=== PATIENT | male | born 1985 | race African-American/Black ===

== ENCOUNTER 2017-02-24 19:33 | Emergency (ER) | payer SELFPAY ==
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
--- NOTE | 2017-02-24 20:35 | RAD ---
HISTORY: Right first finger swelling COMPARISONS: None VIEWS: 3, Frontal, lateral, and oblique views of the first digit of the right hand FINDINGS: BONE DENSITY: Normal. BONES: There is no displaced fracture. JOINTS: There is no arthropathy. ALIGNMENT: There is no dislocation. SOFT TISSUES: There is soft tissue calcification along the volar aspect of the distal phalanx of the first digit OTHER FINDINGS: None. IMPRESSION: DYSTROPHIC CALCIFICATION ALONG THE SOFT TISSUES OF THE DISTAL PHALANX. NO ACUTE OSSEOUS INJURY. IF SYMPTOMS PERSIST, RECOMMEND REPEAT IMAGING
[2017-02-24 20:42] LABS: Hematocrit 46 % (42-52); Mean Corpuscular HGB Conc 33 g/dl (31-36); Mean Corpuscular Hemoglobin 29 pg (27-31); Mean Corpuscular Volume 87 fL (80-94); Mean Platelet Volume 9 um3 (7.4-10.4); Red Blood Count 5.26 10^6/ul (4.0-5.4); Red Cell Distribution Width 13 % (10.5-15); White Blood Count 8.1 10^3/ul (3.5-10.8)
[2017-02-24 20:58] LABS: Albumin 4.4 g/dL (3.2-5.2); BUN/Creatinine Ratio 13.4 (8-20); EGFR African American 116.1 (>60); EGFR Non-African American 90.3 (>60); Globulin 3.7 g/dL (2-4); Potassium 3.8 mmol/L (3.5-5.0); Total Bilirubin 0.4 mg/dL (0.2-1.0); Total Protein 8.1 g/dL (6.4-8.9)
[2017-02-24] MEDS ORDERED: Amoxicillin/Clavulanate TAB* 875 MG PO ONE (21:07)
[2017-02-24] MEDS ORDERED: metFORMIN* 500 MG TAB PO ONE (21:07)
[2017-02-24 22:17] VITALS: BP 129/74
== END 2017-02-24 22:15 | disposition home or self-care (01) ==
LOC: ED 19:33
DX: E11.9 Type 2 diabetes mellitus without complications (principal); Z72.0 Tobacco use; R60.9 Edema, unspecified
CPT/HCPCS: 36415; 80053; 83605; 85025; 86141; 99282; A9270-GY

== ENCOUNTER 2017-12-25 21:41 | Emergency (ER) | payer SELFPAY ==
[2017-12-26 00:23] VITALS: BP 0/0
--- NOTE | 2017-12-26 07:35 | RAD ---
INDICATION: Wound to left hand. TECHNIQUE: 2 views of the left hand were obtained. FINDINGS: The bones are in normal alignment. No fracture is seen. No radiopaque foreign body is seen. Joint spaces appear maintained. IMPRESSION: NO EVIDENCE FOR FRACTURE OR REPEAT FOREIGN BODY.
== END 2017-12-26 00:24 | disposition left against medical advice (07) ==
LOC: ED 21:41
DX: M79.642 Pain in left hand (principal); Z53.21 Procedure and treatment not carried out due to patient leaving prior to being seen by health care provider

== ENCOUNTER 2018-03-18 18:17 | Emergency (ER) | payer SELFPAY ==
[2018-03-18] MEDS ORDERED: Ondansetron ODT TAB* 4 MG SL ONE (19:02)
[2018-03-18] MEDS ORDERED: ceFAZolin 1 GM in Dextrose (*) 1 GM/50 ML BAG IVPB ONE (19:02)
[2018-03-18] MEDS ORDERED: Morphine VIAL* 10 MG/ML 1 ML VIAL IV ONE (19:02)
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
[2018-03-18] MEDS ORDERED: Tetan/Diph/Pertus SYR(Tdap)* 0.5 ML SYR(BOOSTRIX) use SYR IM ONE (19:23)
[2018-03-18 20:23] VITALS: BP 152/92
== END 2018-03-18 20:23 | disposition short-term general hospital (02) ==
LOC: ED 18:17
DX: T26.62XA Corrosion of cornea and conjunctival sac, left eye, initial encounter (principal); T26.61XA Corrosion of cornea and conjunctival sac, right eye, initial encounter; T20.44XA Corrosion of unspecified degree of nose (septum), initial encounter; T28.5XXA Corrosion of mouth and pharynx, initial encounter; Y93.89 Activity, other specified; Y92.89 Other specified places as the place of occurrence of the external cause; Y99.0 Civilian activity done for income or pay; Z23 Encounter for immunization; Z72.0 Tobacco use
CPT/HCPCS: 90471; 96365; 99285; A9270-GY; J0690; J2270

== ENCOUNTER 2018-06-28 20:45 | Emergency (ER) | payer OTHER ==
[2018-06-28] MEDS ORDERED: Lidocaine 1%* 5 ML VIAL INJ ONE (21:26)
[2018-06-28] MEDS ORDERED: Sulfamethox/Trimethoprim DS 800/160* TAB PO ONE (21:26)
--- NOTE | 2018-06-28 21:27 | ED ---
Skin Complaint - HPI Summary HPI Summary: Pt. is a 32 y.o male who presents to the ER for a painful bump behind his left ear x 3 days. Past medical hx of DM type 2. Pt. states he does not check his glucose regularly. Pt. denies fever, chills, N/V. Touching area makes sxs worse. Rest makes sxs better. Symptoms are mild in severity. - History of Current Complaint Chief Complaint: EDRashSkinAbscess Time Seen by Provider: 06/28/18 21:08 Stated Complaint: EAR PAIN Hx Obtained From: Patient Pain Intensity: 7 - Allergy/Home Medications Allergies/Adverse Reactions: Allergies Allergy/AdvReac Type Severity Reaction Status Date / Time No Known Allergies Allergy Verified 06/28/18 20:50 PMH/Surg Hx/FS Hx/Imm Hx Previously Healthy: Yes Endocrine/Hematology History: Reports: Hx Diabetes Cardiovascular History: Denies: Hx Hypertension Sensory History: Denies: Hx Deafness Infectious Disease History: No Infectious Disease History: Denies: Traveled Outside the [place] in Last 30 Days - Family History Known Family History: Positive: Diabetes - Social History Occupation: Works From/At Home Lives: With Family Alcohol Use: Weekly Alcohol Amount: once a week if that. Substance Use Type: Reports: Marijuana Smoking Status (MU): Current Some Day Smoker Review of Systems Constitutional: Negative Negative: Fever, Chills Gastrointestinal: Negative Negative: Vomiting, Nausea Positive: Other - Bump behind left ear Neurological: Negative All Other Systems Reviewed And Are Negative: Yes Physical Exam Triage Information Reviewed: Yes Vital Signs On Initial Exam: Initial Vitals Temp Pulse Resp BP Pulse Ox 97.8 F 91 16 137/93 97 06/28/18 20:47 06/28/18 20:47 06/28/18 20:47 06/28/18 20:47 06/28/18 20:47 Vital Signs Reviewed: Yes Appearance: Positive: Well-Appearing - Pt. lying in bed in NAD. Friend present. Skin: Positive: Warm, Dry, Other - 2cm area of fluctuance noted behind left ear. Overlying skin is erythematous and painful on palpation. No surrounding erythema or edema. Head/Face: Positive: Normal Head/Face Inspection Eyes: Positive: Normal, EOMI Neck: Positive: Supple, Nontender, No Lymphadenopathy Neurological: Positive: Normal, CN Intact II-III Psychiatric: Positive: Affect/Mood Appropriate Procedures - Incision and Drainage Left Head Anesthesia: Local, Lidocaine - 1cc Instrument(s): Scalpel, Other - small amout of purulent matter expressed. Wound was note packed given size. Pt. tolerate well. Diagnostics - Vital Signs Vital Signs Temp Pulse Resp BP Pulse Ox 06/28/18 20:47 97.8 F 91 16 137/93 97 - Laboratory Lab Statement: Any lab studies that have been ordered have been reviewed, and results considered in the medical decision making process. Course/Dx - Course Course Of Treatment: Pt. presenting with likely infected epithelial cyst behind left ear. He is afebrile and well appearing. Abscess was incised and drained as noted above. Will start on bactrim. Advised warm compresses. To f.u with his PCP in 2-3 days for a wound check. To return to ER for increased pain, redness, swelling or fever. Pt. understands and agrees with plan. - Differential Diagnoses - Skin Complaint Differential Diagnoses: Abscess, Cellulitis - Diagnoses Provider Diagnoses: Abscess Discharge - Sign-Out/Discharge Documenting (check all that apply): Patient Departure - Discharge Plan Condition: Good Disposition: HOME Prescriptions: Sulfamethox/Trimethoprim DS* [Bactrim DS 800/160 TAB*] 1 tab PO BID #20 tab Patient Education Materials: Abscess (ED), Incision and Drainage (ED) Referrals: [facility] [Outside] Additional Instructions: Schedule an appointment with your PCP for a wound check in 2-3 days Keep wound clean and dry Apply warm compresses Take antibiotic as directed Return to ER for increased pain, fever, swelling, or if concerned - Billing Disposition and Condition Condition: GOOD Disposition: Home
[2018-06-28 23:14] VITALS: BP 124/69
== END 2018-06-28 23:15 | disposition home or self-care (01) ==
LOC: ED 20:45
DX: L03.811 Cellulitis of head [any part, except face] (principal); E11.9 Type 2 diabetes mellitus without complications; F17.210 Nicotine dependence, cigarettes, uncomplicated
CPT/HCPCS: 10060; 96372; 99282; A9270-GY

== ENCOUNTER 2018-07-19 16:38 | Emergency (ER) | payer OTHER ==
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
[2018-07-19 19:00] VITALS: BP 121/88
== END 2018-07-19 18:59 | disposition home or self-care (01) ==
LOC: ED 16:38
DX: S33.5XXA Sprain of ligaments of lumbar spine, initial encounter (principal); S16.1XXA Strain of muscle, fascia and tendon at neck level, initial encounter; V49.50XA Passenger injured in collision with unspecified motor vehicles in traffic accident, initial encounter; Y92.9 Unspecified place or not applicable; E11.9 Type 2 diabetes mellitus without complications; Z79.84 Long term (current) use of oral hypoglycemic drugs; F17.200 Nicotine dependence, unspecified, uncomplicated
CPT/HCPCS: 72125; 72131; 99282

== ENCOUNTER 2018-10-14 22:30 | Emergency (ER) | payer OTHER ==
--- OUTSIDE RECORDS SUMMARY | 2018-10-14 23:01 | XMS REPORT ---
:1985 Author Organization [facility] Address [address] [place] [address] Care Team Providers Name Role Phone Greg Weaver Unavailable Unavailable PROBLEMS Type Condition ICD9-CM [id number] Onset Condition SNOMED Code Code Code Dates Status Problem Smoking greater than 10 F17.210 Active 18803695 pack years Problem Encounter for tobacco Z71.6 Active 284578509 cessation counseling Problem Pure E78.00 Active 707406291 hypercholesterolemia Problem Abnormal TSH R94.6 Active 251041062 Problem Type 2 diabetes mellitus E11.9 Active 436926070 without complication, without long-term current use of insulin ALLERGIES No Information ENCOUNTERS Encounter Location Date Diagnosis [address] Oct, [place] [address] Sep, [place] [address] Sep, [place] [address] Sep, [place] [address] Sep, [place] [address] Sep, Type 2 [place] [address] without complication, without long-term current use of insulin E11.9 and Encounter for immunization Z23 [address] Aug, [place] [address] Aug, Acute [place] [address] without sciatica M54.[address] Aug, [place] [address] Jul, [place] [address] Jul, [place] [address] Jul, Type 2 [place] [address] without complication, without long-term current use of insulin E11.9 ; Abnormal TSH R94.6 ; Pure hypercholesterolemia E78.00 and Overweight (BMI 25.0-29.9) E66.[address] Jul, Acute [place] [address] without sciatica M54.5 [facility] [address] [place] [address] Apr, [place] [address] Mar, [place] [address] Mar, [place] [address] [facility] [address] [place] [address] Mar, [place] [address] Feb, [place] [address] December, [place] [address] December, Type 2 [place] [address] without complication, without long-term current use of insulin E11.9 ; Low TSH level R94.6 ; Screening cholesterol level Z13.220 and Other viral warts B07.[address] Nov, [place] [address] [facility] Nov, Type 2 [place] [address] without complication, without long-term current use of insulin E11.[address] Nov, Type 2 [place] [address] without complication, without long-term current use of insulin E11.9 IMMUNIZATIONS No Known Immunizations SOCIAL HISTORY Never Assessed REASON FOR REFERRAL FUNCTIONAL STATUS PLAN OF CARE VITAL SIGNS MEDICATIONS Unknown Medications PROCEDURES No Known procedures RESULTS No Results REASON FOR VISIT labs Insurance Providers [facility] Health Member Patient Patient Patient Patient Patient Subscriber Subscriber Subscriber Group Insurance Plan Plan Plan Plan ID Relationship Address Phone Name Date of ID Name Date of No Type Insurance Insurance Insurance Coverage to Subscriber Address Phone Name Dates Earl [phone] [place] self Darrell [id number] Medicaid [place] [address] Medicaid [facility] [address] Medical CHP [phone] CHP self Darrell [id number] Earl 2906 08 [facility] [place] [address] [employer] Medicaid [address] [phone] Medicaid self Darrell [id number] [place] [address] Wrap [place] [address] Case [phone] Case self Darrell [id number] Management [place] 02 Management [facility] [address] [facility] MEDICAL (GENERAL) HISTORY Type Description Date Medical History DM type 2 Surgical History Right Leg surgery 2013 Hospitalization History see above
--- OUTSIDE RECORDS SUMMARY | 2018-10-14 23:01 | XMS REPORT ---
:1985 Author Organization [facility] Address [address] [place] [address] Care Team Providers Name Role Phone Greg Weaver Unavailable Unavailable PROBLEMS Type Condition ICD9-CM [id number] Onset Condition SNOMED Code Code Code Dates Status Problem Encounter for tobacco Z71.6 Active 707481828 cessation counseling Problem Smoking greater than 10 F17.210 Active 57400770 pack years Problem Pure E78.00 Active 839100242 hypercholesterolemia Problem Type 2 diabetes mellitus E11.9 Active 892009860 without complication, without long-term current use of insulin Problem Abnormal TSH R94.6 Active 247523218 ALLERGIES No Known Allergies ENCOUNTERS Encounter Location Date Diagnosis [address] Oct, [place] [address] Sep, [place] [address] Sep, [place] [address] Sep, [place] [address] Sep, Type 2 [place] [address] without complication, without long-term current use of insulin E11.9 and Encounter for immunization Z23 [address] Aug, [place] [address] Aug, Acute [place] [address] without sciatica M54.[address] Aug, [place] [address] Jul, [place] [address] Jul, [place] [address] Jul, Type 2 [place] [address] without complication, without long-term current use of insulin E11.9 ; Abnormal TSH R94.6 ; Pure hypercholesterolemia E78.00 and Overweight (BMI 25.0-29.9) E66.[address] Jul, Acute [place] [address] without sciatica M54.5 [facility] [address] [place] [address] Apr, [place] [address] Mar, [place] [address] Mar, [place] [address] Mar, [place] [address] Feb, [place] [address] December, [place] [address] December, Type 2 [place] [address] without complication, without long-term current use of insulin E11.9 ; Low TSH level R94.6 ; Screening cholesterol level Z13.220 and Other viral warts B07.[address] Nov, [place] [address] [facility] Nov, Type 2 [place] [address] without complication, without long-term current use of insulin E11.[address] Nov, Type 2 [place] [address] without complication, without long-term current use of insulin E11.9 IMMUNIZATIONS Vaccine Route Administration Date Status [facility] Adult Pneumovax 23 Valent IM Intramuscular Sep 16, 2018 Administered Prefilled Syringe [facility] Adult Hep A/Hep B Prefilled IM Intramuscular Sep 16, 2018 Administered Syringe TwinRix SOCIAL HISTORY Never Assessed REASON FOR REFERRAL FUNCTIONAL STATUS PLAN OF CARE Activity Details Follow Up 4 Weeks Reason:Dr. Dickson, diabetes Pending Test Medical Appointment Follow-Up Pending Test -MICROALBUMIN,RANDOM URINE (W/CREAT) Pending Test -BASIC METABOLIC PANEL W/EGFR Pending Test -CBC (H/H,RBC,INDICES,WBC,PLT) VITAL SIGNS Temperature 97.5 degrees Fahrenheit 2018-09-16 Heart Rate 20 2018-09-16 Weight 180.2 2018-09-16 Height 66.1 in 2018-09-16 BMI 28.99 kg/m2 2018-09-16 Oximetry 100 % 2018-09-16 Blood pressure systolic 125 mm Hg 2018-09-16 Blood pressure diastolic 84 mm Hg 2018-09-16 MEDICATIONS Medication Instructions Dosage Frequency Start End Duration Status Date Date Accu-Chek In Vitro bid for as directed 30 day(s) Active Advantage Test E11.9 Basaglar Subcutaneous 12 as directed Jul, 30 days Active KwikPen 100 units once daily 2018 UNIT/ML for E11.9 Accu-Chek Device as as directed 30 day(s) Active Advantage directed for Diabetes E11.9 Easy Buford Pen Device once as directed Jul, 90 days Active Grapevine 33G X daily for e11.9 2017 4 MM Metformin HCl Orally bid 2 12h 30 day(s) Active 500 mg Meloxicam 15 Orally Once a 1 tablet 24h 16 Aug,, 30 day(s) Active MG day 2018 2018 Alcohol Prep External bid as directed 12h 30 day(s) Active Pad 70 % Lancets - Device bid for as directed 30 day(s) Active E11.9 PROCEDURES Procedure Date Ordered Result Body Site SPECIMEN HANDLING Sep 16, 2018 BLOOD PRESSURE, MEASURED Sep 16, 2018 Oxygen saturation results documented and reviewed Sep 16, 2018 [facility] Adult Pneumovax 23 Valent Prefilled Syringe Sep 16, 2018 Immunization Administration Sep 16, 2018 VENIPUNCT, ROUTINE* venous blood collection Sep 16, 2018 BODY MASS INDEX DOCD Sep 16, 2018 SMOKING + 2ND HAND ASSESSED Sep 16, 2018 [facility] Adult Hep A/Hep B Prefilled Syringe TwinRix Sep 16, 2018 GLYCATED HEMOGLOBIN A1C Sep 16, 2018 RESULTS Name Result Date Reference Range - Blood Draw Venipuncture 2018-09-16 -HbA1c - In House Test 2018-09-16 HbA1c >14.0 -Urine/Lab Specimen Collection 2018-09-16 REASON FOR VISIT Patient is here for a DM f/u Insurance Providers [facility] Health Member Patient Patient Patient Patient Patient Subscriber Subscriber Subscriber Group Insurance Plan Plan Plan Plan ID Relationship Address Phone Name Date of ID Name Date of No Type Insurance Insurance Insurance Coverage to Subscriber Address Phone Name Dates CHP [phone] CHP self Darrell [id number] Earl [phone] [facility] [place] [address] [employer] [place] [phone] [place] self Darrell [id number] Medicaid [place] [address] [place] [address] Medical Case [phone] Case self Darrell [id number] Management [place] 02 Management [facility] [address] Community Medicaid [address] [phone] Medicaid self Darrell [id number] [address] [place] [address] MEDICAL (GENERAL) HISTORY Type Description Date Medical History DM type 2 Surgical History Right Leg surgery 2012 Hospitalization History see above
--- OUTSIDE RECORDS SUMMARY | 2018-10-14 23:01 | XMS REPORT ---
:1985 Author Organization [facility] Address [address] [place] [address] Care Team Providers Name Role Phone Greg Weaver Unavailable Unavailable PROBLEMS Type Condition ICD9-CM HEK57-IZ Onset Condition SNOMED Code Code Code Dates Status Problem Encounter for tobacco Z71.6 Active 405743819 cessation counseling Problem Smoking greater than 10 F17.210 Active 94998682 pack years Problem Pure E78.00 Active 959781901 hypercholesterolemia Problem Type 2 diabetes mellitus E11.9 Active 347538000 without complication, without long-term current use of insulin Problem Abnormal TSH R94.6 Active 651753939 ALLERGIES No Information ENCOUNTERS Encounter Location Date Diagnosis [address] Oct, [place] [address] Sep, [place] [address] Sep, [place] [address] Sep, [place] [address] Sep, Type 2 [place] [address] without complication, without long-term current use of insulin E11.9 and Encounter for immunization Z23 [address] Aug, [place] [address] Aug, Acute [place] [address] without sciatica M54.[address] Aug, [place] [address] Jul, [place] [address] Jul, [place] [address] Jul, Type 2 diabetes [place] [address] without complication, without long-term current use of insulin E11.9 ; Abnormal TSH R94.6 ; Pure hypercholesterolemia E78.00 and Overweight (BMI 25.0-29.9) E66.[address] Jul, Acute midline low back [place] [address] without sciatica M54.[address] Apr, [place] [address] Mar, [place] [address] Mar, [place] [address] Mar, [place] [address] Feb, [place] [address] December, [place] [address] December, Type 2 [place] [address] without complication, without long-term current use of insulin E11.9 ; Low TSH level R94.6 ; Screening cholesterol level Z13.220 and Other viral warts B07.[address] Nov, [place] [address] [place] [address] [facility] Nov, Type 2 [place] [address] without complication, without long-term current use of insulin E11.[address] Nov, Type 2 [place] [address] without complication, without long-term current use of insulin E11.9 IMMUNIZATIONS No Known Immunizations SOCIAL HISTORY Never Assessed REASON FOR REFERRAL FUNCTIONAL STATUS PLAN OF CARE VITAL SIGNS MEDICATIONS Unknown Medications PROCEDURES No Known procedures RESULTS No Results REASON FOR VISIT Diabetes Insurance Providers [facility] Health Member Patient Patient Patient Patient Patient Subscriber Subscriber Subscriber Group Insurance Plan Plan Plan Plan ID Relationship Address Phone Name Date of ID Name Date of No Type Insurance Insurance Insurance Coverage to Subscriber Address Phone Name Dates Earl [address] [phone] Earl Ramírez [id number] Medicaid [place] [address] [facility] [address] Medical Case [phone] Case self Darrell [id number] Management [place] 02 Management [facility] [address] [facility] [place] [phone] CHP self Darrell [id number] Earl [id number] 08 [facility] [place] [address] [employer] Medicaid [address] [phone] Medicaid self Darrell [id number] [place] [address] [address] [place] [address] MEDICAL (GENERAL) HISTORY Type Description Date Medical History DM type 2 Surgical History Right Leg surgery 2012 Hospitalization History see above
--- OUTSIDE RECORDS SUMMARY | 2018-10-14 23:01 | XMS REPORT ---
:1985 Author Organization [facility] Address [address] [place] [address] Care Team Providers Name Role Phone Greg Weaver Unavailable Unavailable PROBLEMS Type Condition ICD9-CM [id number] Onset Condition SNOMED Code Code Code Dates Status Problem Smoking greater than 10 F17.210 Active 88394891 pack years Problem Encounter for tobacco Z71.6 Active 314009694 cessation counseling Problem Pure E78.00 Active 460132926 hypercholesterolemia Problem Abnormal TSH R94.6 Active 500250021 Problem Type 2 diabetes mellitus E11.9 Active 887892314 without complication, without long-term current use of insulin ALLERGIES No Information ENCOUNTERS Encounter Location Date Diagnosis [address] Oct, [place] [address] Sep, [place] [address] [place] [address] [place] Sep, [place] [address] [place] [address] [address] [place] [address] [place] [address] [address] [place] Sep, [place] [address] [place] [address] [address] [place] Sep, [place] [address] Sep, Type 2 [place] [address] without complication, without long-term current use of insulin E11.9 and Encounter for immunization Z23 [place] [address] [place] Aug, [place] [address] [place] [address] [address] [place] Aug, Acute [place] [address] without sciatica M54.[address] [place] Aug, [place] [address] Jul, [place] [address] Jul, [place] [address] Jul, Type 2 [place] [address] without complication, without long-term current use of insulin E11.9 ; Abnormal TSH R94.6 ; Pure hypercholesterolemia E78.00 and Overweight (BMI 25.0-29.9) E66.[address] Jul, Acute midline [place] [address] without sciatica M54.5 [facility] [address] [facility] Apr, [place] [address] Mar, [place] [address] Mar, [place] [address] [facility] [address] [place] [address] Mar, [place] [address] Feb, [place] [address] December, [place] [address] December, Type 2 [place] [address] without complication, without long-term current use of insulin E11.9 ; Low TSH level R94.6 ; Screening cholesterol level Z13.220 and Other viral warts B07.[address] Nov, [place] [address] [facility] Nov, Type 2 [place] [address] without complication, without long-term current use of insulin E11.[address] Nov, Type 2 diabetes mellitus [place] [address] without complication, without long-term current use of insulin E11.9 IMMUNIZATIONS No Known Immunizations SOCIAL HISTORY Never Assessed REASON FOR REFERRAL FUNCTIONAL STATUS PLAN OF CARE VITAL SIGNS MEDICATIONS Unknown Medications PROCEDURES No Known procedures RESULTS No Results REASON FOR VISIT No show 4 Insurance Providers [facility] Health Member Patient Patient Patient Patient Patient Subscriber Subscriber Subscriber Group Insurance Plan Plan Plan Plan ID Relationship Address Phone Name Date of ID Name Date of No Type Insurance Insurance Insurance Coverage to Subscriber Address Phone Name Dates Medicaid [address] [phone] Medicaid self Darrell [id number] ap [facility] [address] [place] [address] CHP [phone] CHP self Darrell [id number] Earl [id number] [facility] [place] [address] [employer] [place] [address] [phone] [place] self Darrell [id number] Medicaid [place] [address] [place] [address] Medical Case [phone] Case self Darrell [id number] Management [place] 02 Management [facility] [address] [facility] MEDICAL (GENERAL) HISTORY Type Description Date Medical History DM type 2 Surgical History Right Leg surgery 2012 Hospitalization History see above
--- OUTSIDE RECORDS SUMMARY | 2018-10-14 23:01 | XMS REPORT ---
:1985 Author Organization [facility] Address [address] [place] [address] Care Team Providers Name Role Phone Greg Weaver Unavailable Unavailable PROBLEMS Type Condition ICD9-CM GKC66-HX Onset Condition SNOMED Code Code Code Dates Status Problem Smoking greater than 10 F17.210 Active 98945693 pack years Problem Encounter for tobacco Z71.6 Active 259545022 cessation counseling Problem Pure E78.00 Active 054144222 hypercholesterolemia Problem Abnormal TSH R94.6 Active 244947963 Problem Type 2 diabetes mellitus E11.9 Active 647691588 without complication, without long-term current use of insulin ALLERGIES No Information ENCOUNTERS Encounter Location Date Diagnosis [address] Oct, [place] [address] Oct, [place] [address] Sep, [place] [address] [place] [address] [address] [place] Sep, [place] [address] [place] [address] [address] [place] Sep, [place] [address] [place] [address] [address] [place] Sep, [place] [address] Sep, [place] [address] Sep, Type 2 [place] [address] without complication, without long-term current use of insulin E11.9 and Encounter for immunization Z23 [address] Aug, [place] [address] [place] [address] [address] [place] Aug, Acute bilateral [place] [address] without sciatica M54.[address] Aug, [place] [address] Jul, [place] [address] Jul, [place] [address] Jul, Type 2 [place] [address] without complication, without long-term current use of insulin E11.9 ; Abnormal TSH R94.6 ; Pure hypercholesterolemia E78.00 and Overweight (BMI 25.0-29.9) E66.[address] Jul, Acute [place] [address] without sciatica M54.5 [facility] [address] [facility] Apr, [place] [address] Mar, [place] [address] Mar, [place] [address] [facility] [address] [facility] Mar, [place] [address] Feb, [place] [address] December, [place] [address] December, Type 2 [place] [address] without complication, without long-term current use of insulin E11.9 ; Low TSH level R94.6 ; Screening cholesterol level Z13.220 and Other viral warts B07.[address] Nov, [place] [address] [facility] [address] [facility] Nov, Type 2 [place] [address] without complication, without long-term current use of insulin E11.[address] Nov, Type 2 [place] [address] without complication, without long-term current use of insulin E11.9 IMMUNIZATIONS No Known Immunizations SOCIAL HISTORY Never Assessed REASON FOR REFERRAL FUNCTIONAL STATUS PLAN OF CARE VITAL SIGNS MEDICATIONS Unknown Medications PROCEDURES No Known procedures RESULTS No Results REASON FOR VISIT call pateint about Diabetes Insurance Providers [facility] Member Patient Patient Patient Patient Patient Subscriber Subscriber Subscriber Group Insurance Plan Plan Plan Plan ID Relationship Address Phone Name Date of ID Name Date of No Type Insurance Insurance Insurance Coverage to Subscriber Address Phone Name Dates Earl [phone] [place] self Darrell [id number] Medicaid [id number] Medicaid [place] [address] [employer] [phone] Earl self Darrell [id number] Medicaid [place] [address] [place] [address] Medical Case [phone] Case self Darrell [id number] Management [place] 02 Management [facility] [address] Community Medicaid [address] [phone] Medicaid self Darrell [id number] [place] [address] MEDICAL (GENERAL) HISTORY Type Description Date Medical History DM type 2 Surgical History Right Leg surgery 2012 Hospitalization History see above
--- OUTSIDE RECORDS SUMMARY | 2018-10-14 23:01 | XMS REPORT ---
:1985 Author Organization [facility] Address [address] [place] [address] Care Team Providers Name Role Phone Greg Weaver Unavailable Unavailable PROBLEMS Type Condition ICD9-CM UIP47-FT Onset Condition SNOMED Code Code Code Dates Status Problem Smoking greater than 10 F17.210 Active 06559522 pack years Problem Encounter for tobacco Z71.6 Active 887913157 cessation counseling Problem Pure E78.00 Active 235276353 hypercholesterolemia Problem Abnormal TSH R94.6 Active [id number] Problem Type 2 diabetes mellitus E11.9 Active [id number] without complication, without long-term current use of insulin ALLERGIES No Information ENCOUNTERS Encounter Location Date Diagnosis [address] Oct, [place] [address] Sep, [place] [address] Sep, [place] [address], [place] [address] [place] [address] Sep, [place] [address] [place] [address] Sep, [place] [address] Sep, Type 2 [place] [address] without complication, without long-term current use of insulin E11.9 and Encounter for immunization Z23 [place] [address] Aug, [place] [address] Aug, [place] [address] without sciatica M54.[address] Aug, [place] [address] [place] [address] Jul, [place] [address] Jul, [place] [address] Jul, Type 2 diabetes [place] [address] without complication, without long-term current use of insulin E11.9 ; Abnormal TSH R94.6 ; Pure hypercholesterolemia E78.00 and Overweight (BMI 25.0-29.9) E66.[address] Jul, Acute midline low [place] [address] without sciatica M54.5 [facility] [address] [place] [address] Apr, [place] [address] Mar, [place] [address] Mar, [place] [address] [facility] [address] [place] [address] Mar, [place] [address] Feb, [place] [address] December, [place] [address] December, Type 2 diabetes mellitus [facility] [address] without complication, without long-term current use of insulin E11.9 ; Low TSH level R94.6 ; Screening cholesterol level Z13.220 and Other viral warts B07.[address] Nov, [place] [address] Nov, Type 2 [place] [address] without complication, without long-term current use of insulin E11.[address] Nov, Type 2 diabetes mellitus [facility] [address] without complication, without long-term current use of insulin E11.9 IMMUNIZATIONS No Known Immunizations SOCIAL HISTORY Never Assessed REASON FOR REFERRAL FUNCTIONAL STATUS PLAN OF CARE VITAL SIGNS MEDICATIONS Unknown Medications PROCEDURES No Known procedures RESULTS No Results REASON FOR VISIT No show 5 Insurance Providers [facility] Member Patient Patient Patient Patient Patient Subscriber Subscriber Subscriber Group Insurance Plan Plan Plan Plan ID Relationship Address Phone Name Date of ID Name Date of No Type Insurance Insurance Insurance Coverage to Subscriber Address Phone Name Dates Earl Dorman [phone] Earl self Darrell [id number] Medicaid [id number] [place] [address] [employer] [phone] Case self Darrell [id number] Management [place] 02 Management Jaime [facility] [address] [facility] [place] [phone] [place] self Darrell [id number] Medicaid [place] [id number] Medicaid Jiame [facility] [id number] Medical Medicaid [id number] [phone] Medicaid self Darrell [id number] Wrap [address] [address] MEDICAL (GENERAL) HISTORY Type Description Date Medical History DM type 2 Surgical History Right Leg surgery 2013 Hospitalization History see above
[2018-10-15] MEDS ORDERED: Lidocaine 2% W/EPI 1:100,000* 20 ML MDV INJ ONE (00:39)
--- NOTE | 2018-10-15 00:43 | ED ---
Throat Pain/Nasal Congestion - HPI Summary HPI Summary: 32-year-old male presents with left ear abscess for the past couple days. He states he's had this before. He denies any nausea vomiting. Denies any decrease in hearing. Denies any headache. He states the pain seems to radiate to his jaw. He is diabetic. - History of Current Complaint Chief Complaint: EDEarPain Time Seen by Provider: 10/15/18 00:34 - Allergies/Home Medications Allergies/Adverse Reactions: Allergies Allergy/AdvReac Type Severity Reaction Status Date / Time No Known Allergies Allergy Verified 10/14/18 22:55 PMH/Surg Hx/FS Hx/Imm Hx Endocrine/Hematology History: Reports: Hx Diabetes Cardiovascular History: Denies: Hx Hypertension Sensory History: Denies: Hx Deafness - Cancer History Cancer Type, Location and Year: None reported - Surgical History Surgery Procedure, Year, and Place: None reported Infectious Disease History: No Infectious Disease History: Denies: Traveled Outside the [place] in Last 30 Days - Family History Known Family History: Positive: Diabetes - Social History Alcohol Use: Weekly Alcohol Amount: once a week if that. Substance Use Type: Reports: Marijuana Smoking Status (MU): Current Some Day Smoker Review of Systems Negative: Fever Positive: Ear Ache Negative: Chest Pain Negative: Shortness Of Breath All Other Systems Reviewed And Are Negative: Yes Physical Exam Triage Information Reviewed: Yes Vital Signs On Initial Exam: Initial Vitals Temp Pulse Resp BP Pulse Ox 98.9 F 87 16 139/85 99 10/14/18 22:50 10/14/18 22:50 10/14/18 22:50 10/14/18 22:50 10/14/18 22:50 Vital Signs Reviewed: Yes Appearance: Positive: Well-Appearing Skin: Positive: Warm, Dry Head/Face: Positive: Normal Head/Face Inspection Eyes: Positive: Normal, EOMI, LEXX, Conjunctiva Clear ENT: Positive: Pharynx normal, TMs normal, Other - 4cm by 2cm area of edema and erythema behind left ear lobe Neck: Positive: Tenderness @ - left cervical, Enlarged Nodes @ - left cervical Respiratory/Lung Sounds: Positive: Clear to Auscultation, Breath Sounds Present Cardiovascular: Positive: Normal, RRR Musculoskeletal: Positive: Normal Neurological: Positive: Normal Psychiatric: Positive: Normal Procedures - Incision and Drainage left ear Site: left ear Anesthesia: Local Instrument(s): Scalpel Diagnostics - Vital Signs Vital Signs Temp Pulse Resp BP Pulse Ox 10/14/18 22:50 98.9 F 87 16 139/85 99 - Laboratory Lab Statement: Any lab studies that have been ordered have been reviewed, and results considered in the medical decision making process. EENT Course/Dx - Course Course Of Treatment: 32-year-old male presents with left ear abscess for the past couple days. He states he's had this before. He denies any nausea vomiting. Denies any decrease in hearing. Denies any headache. He states the pain seems to radiate to his jaw. He is diabetic. On exam has abscess behind the left earlobe. Has tender lymphadenopathy near the ear. Afebrile. Performed I&D and got copious amount of discharge. Will place on Bactrim. Patient understands agrees plan. - Differential Diagnoses Differential Diagnoses: Cellulitis, Otitis Externa, Otitis Media, Other - abscess - Diagnoses Provider Diagnoses: Abscess of left earlobe Discharge - Sign-Out/Discharge Documenting (check all that apply): Patient Departure Patient Received Moderate/Deep Sedation with Procedure: No - Discharge Plan Condition: Good Disposition: HOME Prescriptions: Sulfamethox/Trimethoprim DS* [Bactrim DS 800/160 TAB*] 1 tab PO BID #19 tab Patient Education Materials: Abscess (ED) Referrals: Sanchez Dickson MD [Primary Care Provider] - Tim Watts MD [Medical Doctor] - Additional Instructions: Take antibiotic twice a day for 10 days, first dose given in ED Apply warm compresses to area Take ibuprofen or Tylenol for pain every 6 hours Follow up with primary within 3 days Return to ED if develop fever, area of redness spreads, or any new or worsening symptoms - Billing Disposition and Condition Condition: GOOD Disposition: Home
[2018-10-15] MEDS ORDERED: Lidocaine 2% EPI 1:200000 MPF*10-20 ML VIAL ONE (00:44)
[2018-10-15] MEDS ORDERED: Sulfamethox/Trimethoprim DS 800/160* TAB PO ONE (00:56)
[2018-10-15 01:14] VITALS: BP 128/74
== END 2018-10-15 01:14 | disposition home or self-care (01) ==
LOC: ED 22:30
DX: H66.42 Suppurative otitis media, unspecified, left ear (principal); H60.00 Abscess of external ear, unspecified ear; H92.02 Otalgia, left ear; Z72.0 Tobacco use
CPT/HCPCS: 10060; 69000; 87070; 87205; 87640; 87641; 96374; 99282; A9270-GY

== ENCOUNTER → 2019-01-20 20:21 | Emergency (ER) | payer OTHER ==
[~2019-01-20 20:21] MED LIST: Bupivacaine 0.25% SDV PF* 10 ML VIAL INJ ONE; Bupivacaine 0.25% SDV* 30 ML INJ ONE; Sulfamethox/Trimethoprim DS 800/160* TAB PO ONE; Tetan/Diph/Pertus SYR(Tdap)* 0.5 ML SYR(BOOSTRIX) use SYR IM ONE; oxyCODONE TAB* 5 MG TAB PO ONE
--- NOTE | 2019-01-20 22:41 | ED ---
Laceration/Wound HPI - HPI Summary HPI Summary: Patient complains of accidental fall through a glass door tonight with several lacerations to right upper extremity and left lower extremity. Denies any other pain injury or symptoms.Denies etoh, recreational drug use Tetanus status unknown. Medical history is none. - History of Current Complaint Stated Complaint: IM BLEEDING PER PT Time Seen by Provider: 01/20/19 20:32 Hx Obtained From: Patient Mechanism of Injury: Sharp/Blunt Trauma Aggravating: Movement Onset Severity: Moderate Current Severity: Moderate Pain Intensity: 7 Pain Scale Used: 0-10 Numeric Associated Signs & Symptoms: Pain - Allergy/Home Medications Allergies/Adverse Reactions: Allergies Allergy/AdvReac Type Severity Reaction Status Date / Time No Known Allergies Allergy Verified 01/20/19 20:26 PMH/Surg Hx/FS Hx/Imm Hx Endocrine/Hematology History: Reports: Hx Diabetes Denies: Hx Anticoagulant Therapy Cardiovascular History: Denies: Hx Hypertension History: Denies: Hx Dialysis Sensory History: Denies: Hx Eye Prosthesis, Hx Deafness Opthamlomology History: Denies: Hx Legally Blind EENT History: Denies: Hx Deafness Neurological History: Denies: Hx Dementia Psychiatric History: Denies: Hx Autism - Cancer History Cancer Type, Location and Year: None reported - Surgical History Surgery Procedure, Year, and Place: None reported Infectious Disease History: No Infectious Disease History: Denies: Traveled Outside the [place] in Last 30 Days - Family History Known Family History: Positive: Diabetes - Social History Alcohol Use: Weekly Alcohol Amount: once a week if that. Substance Use Type: Reports: Marijuana Smoking Status (MU): Current Some Day Smoker Review of Systems Constitutional: Negative Eyes: Negative ENT: Negative Cardiovascular: Negative Respiratory: Negative Gastrointestinal: Negative Genitourinary: Negative Musculoskeletal: Negative Skin: Other Neurological: Negative Psychological: Normal All Other Systems Reviewed And Are Negative: Yes Physical Exam - Summary Physical Exam Summary: 6 cm x 2 cm laceration right lateral tricep. 2 cm x 0.5 cm laceration right posterior tricep. Second 2 cm x 0.5 cm laceration to right posterior tricep. Third laceration to right tricep 2 cm x 0.5 cm. Laceration to dorsal surface of left mid forearm 4 cm x 2 cm. No foreign bodies noted in any lacerations. PMS intact distally on bilateral upper extremities. Normal flexion and extension of bilateral shoulders, elbows, wrists. 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 No other wounds, ecchymosis, deformity, swelling, trauma noted to mouth, face, head, neck, back, chest wall, abdomen, lower extremities. Patient clinically sober, coherent and appropriate and answers in behavior. Triage Information Reviewed: Yes Vital Signs On Initial Exam: Initial Vitals Temp Pulse Resp BP Pulse Ox 96.2 F 96 18 116/80 97 01/20/19 20:23 01/20/19 20:23 01/20/19 20:23 01/20/19 20:23 01/20/19 20:23 Vital Signs Reviewed: Yes Appearance: Positive: Well-Appearing Skin: Positive: Warm Head/Face: Positive: Normal Head/Face Inspection Eyes: Positive: Normal Neck: Positive: Supple Respiratory/Lung Sounds: Positive: Clear to Auscultation Cardiovascular: Positive: Normal Abdomen Description: Positive: Nontender Musculoskeletal: Positive: Normal Neurological: Positive: Normal Psychiatric: Positive: Normal AVPU Assessment: Alert - [place] Coma Scale Best Eye Response: 4 - Spontaneous Best Motor Response: 6 - Obeys Commands Best Verbal Response: 5 - Oriented Coma Scale Total: 15 Procedures - Laceration/Wound Repair 1 Location: upper extremity Description: Linear Anesthesia: Local, Marcaine Length, Depth and Shape: [id number] Betadine Prep?: Yes Irrigated w/ Saline (ccs): 400 Laceration/Wound Explored: clean Debridement: minimal Number of Sutures: 11 - 4.0 ethilon Layer Closure?: Yes - 2 sutures 4. 0 Vicryl Sterile Dressing Applied?: No 2 Location: upper extremity Description: Linear Anesthesia: Marcaine Length, Depth and Shape: 2 cm x 0.5 cm Betadine Prep?: Yes Irrigated w/ Saline (ccs): 200 Laceration/Wound Explored: clean Number of Sutures: 5 - 4. 0 Ethilon Layer Closure?: No Sterile Dressing Applied?: No 3 Location: upper extremity Description: Linear Anesthesia: Marcaine Length, Depth and Shape: 2 cm 0.5 cm Betadine Prep?: Yes Irrigated w/ Saline (ccs): 300 Laceration/Wound Explored: clean Debridement: minimal Number of Sutures: 4 - 4. 0 Ethilon Layer Closure?: No Sterile Dressing Applied?: No 4 Location: upper extremity Description: Linear Anesthesia: Marcaine Length, Depth and Shape: 2 cm x 0.5 cm Betadine Prep?: Yes Laceration/Wound Explored: clean Debridement: minimal Number of Sutures: 3 - 4. 0 Ethilon Layer Closure?: No Sterile Dressing Applied?: No 5 Location: upper extremity - left forearm Description: Linear Anesthesia: Marcaine Length, Depth and Shape: 4 cm x 2 cm Betadine Prep?: Yes Irrigated w/ Saline (ccs): 300 Laceration/Wound Explored: clean Debridement: minimal Number of Sutures: 6 - 4. 0 Ethilon Layer Closure?: No Sterile Dressing Applied?: No Diagnostics - Vital Signs Vital Signs Temp Pulse Resp BP Pulse Ox 01/20/19 20:23 96.2 F 96 18 116/80 97 - Laboratory Lab Statement: Any lab studies that have been ordered have been reviewed, and results considered in the medical decision making process. Laceration Repair Course/Dx - Course Course Of Treatment: Patient complains of accidental fall through a glass door tonight with several lacerations to right upper extremity and left lower extremity. Denies any other pain injury or symptoms.Denies etoh, recreational drug use Tetanus status unknown. Medical history is none. Physical exam:6 cm x 2 cm laceration right lateral tricep. 2 cm x 0.5 cm laceration right posterior tricep. Second 2 cm x 0.5 cm laceration to right posterior tricep. Third laceration to right tricep 2 cm x 0.5 cm. Laceration to dorsal surface of left mid forearm 4 cm x 2 cm. No foreign bodies noted in any lacerations. PMS intact distally on bilateral upper extremities. Normal flexion and extension of bilateral shoulders, elbows, wrists. 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 No other wounds, ecchymosis, deformity, swelling, trauma noted to mouth, face, head, neck, back, chest wall, abdomen, lower extremities. Patient clinically sober, coherent and appropriate and answers in behavior. Tetanus booster administered. Wounds cleaned and repaired and wrapped. Patient started on Bactrim here in the ED. Rx for same. - Clinical Impression Provider Diagnoses: Laceration Discharge - Sign-Out/Discharge Documenting (check all that apply): Patient Departure Patient Received Moderate/Deep Sedation with Procedure: No - Discharge Plan Condition: Stable Disposition: HOME Prescriptions: Sulfamethox/Trimethoprim DS* [Bactrim DS 800/160 TAB*] 1 tab PO BID 10 Days #20 tab Patient Education Materials: Care For Your Stitches (ED), Laceration (ED) Referrals: Sanchez Dickson MD [Primary Care Provider] - Additional Instructions: Sutures out in 10 days. Take antibiotics as directed. You may shower or wash with warm running water and soap starting tomorrow. Do not submerge as in bathing or swimming. Keep wound clean and dry and covered when not washing. Ibuprofen or Tylenol for pain. Return to the ED for any new or worsening symptoms. - Billing Disposition and Condition Condition: STABLE Disposition: Home
[2019-01-20 22:51] VITALS: BP 126/81
== END | disposition home or self-care (01) ==
LOC: ED 20:21
DX: S41.112A Laceration without foreign body of left upper arm, initial encounter (principal); S41.111A Laceration without foreign body of right upper arm, initial encounter; Z23 Encounter for immunization; W25.XXXA Contact with sharp glass, initial encounter; E11.9 Type 2 diabetes mellitus without complications; F17.290 Nicotine dependence, other tobacco product, uncomplicated
CPT/HCPCS: 12005; 90471; 90715; 96372; 99282; A9270-GY; J3490